=== PATIENT | female | born 1940 | race Caucasian/White ===

== ENCOUNTER → 2016-12-10 | Outpatient (CLI) | payer MEDICARE, BC ==
[2013-12-22 15:00] VITALS: BP 133/71
[~2016-12-10] MED LIST: ASPI-482 PO; CALC600T4 PO; CETI10TA22 PO; CHOL20009 PO; CIPR500S2 PO; CRESTOR5 MG PO; EZET10TA18 PO; FAMO-63 PO; FERR-26 PO; FLUT1DIS3 IH; FURO40TA4 PO; HYDR-2762 PO; INSU100I17 SQ; INSU100V13 SQ; LEVO88TA4 PO; LISI-338 PO; MULT-246 PO; POTA20TA4 PO; PROB500T PO; Propanolol; WARF-78 PO
--- NOTE | 2016-12-10 17:58 | KCIC ---
MRI of the lumbar spine without contrast 12/10/2016 CLINICAL HISTORY: Low back pain which radiates down the left hip for the last 6 weeks. TECHNIQUE: Unenhanced T1-weighted, T2-weighted and recovery sagittal and T1-weighted and T2-weighted axial images of the lumbar spine were obtained. FINDINGS: Comparison study is dated 10/08/2015. Minimal S-shaped curvature of the thoracolumbar spine is seen. Mild anterolisthesis of L4 in relation L5 is noted. Degenerative signal changes are seen involving all the disks of the lower thoracic and throughout the lumbar spine. Degenerative signal changes within the marrow surrounding these discs. The conus medullaris is normal morphology, position, and signal characteristics. Several rounded high signal intensity lesions are seen scattered throughout both kidneys which measure 5 mm to 1 cm in size. They likely represent cysts. At the T12-L1 disc space there is a mild generalized disc bulge. Degenerative changes are seen involving the facet joints bilaterally. There is mild ligament flavum hypertrophy. These findings do not result in significant central spinal canal or neural foraminal stenosis. At the L1-2 disc space is a mild generalized disc bulge. Degenerative changes are seen involving the facet joints bilaterally. There is mild ligamentum flavum hypertrophy bilaterally. These findings when combined do not result in significant central spinal canal or neural foraminal stenosis. At the L2-3 disc space there is a mild generalized disc bulge. Degenerative changes are seen involving the facet joints bilaterally. There is mild to moderate ligamentum flavum hypertrophy bilaterally. These findings when combined do not result in significant central spinal canal or neural foraminal stenosis. At the L3-4 disc space there is a mild generalized disc bulge. Degenerative changes are seen involvling the facet joints bilaterally. There is moderate ligamentum flavum hypertrophy bilaterally. These findings when combined result in mild to moderate central spinal canal stenosis. No neural foraminal stenosis is seen. At the L4-5 disc space there is a moderate generalized disc bulge. Degenerative changes are seen involving the facet joints bilaterally. There is moderate ligamentum flavum hypertrophy bilaterally. These findings when combined result in moderate central spinal canal stenosis. No neural foraminal stenosis is seen. At the L5-S1 disc space there is a mild generalized disc bulge. Degenerative changes are seen involving the facet joints bilaterally. These findings do not result in significant central spinal canal or neural foraminal stenosis. Since the previous examination there has been no significant interval change. IMPRESSION: The changes of degenerative disc disease are seen throughout the lumbar spine. These findings result in mild to moderate central spinal canal stenosis at L3-4 and moderate central spinal canal stenosis at L4-5. No neural foraminal stenosis is seen. Electronically signed by: Bharat Alex MD (12/10/2016 5:54 PM)
== END | disposition home or self-care (01) ==
LOC: KCIC MRI 13:30
PROVIDERS: ATTEND Family Medicine
DX: M47.896 Other spondylosis, lumbar region (principal); M79.89 Other specified soft tissue disorders
CPT/HCPCS: 72148